=== PATIENT | female | born 1965 | race American Indian/Alaskan Native ===

== ENCOUNTER 2016-08-13 11:25 | Emergency (ER) | payer MEDICARE, MEDICAID ==
[2016-08-13 12:10] VITALS: BP 143/125
[2016-08-13] MEDS ORDERED: Albuterol/Ipratropium 3.0-0.5 MG/3 ML Neb Soln NEB ONE (12:38)
--- NOTE | 2016-08-13 12:47 | EDM.PDOC ---
ED HISTORY OF PRESENT ILLNESS - General Chief Complaint: Respiratory Problem Stated Complaint: COUGHING UP BLOOD AND CHEST HURTS Time Seen by Provider: 08/13/16 12:29 Source: Reports: Patient History Limitations: Reports: No limitations - History of Present Illness INITIAL COMMENTS - FREE TEXT/NARRATIVE: 50 yr old female who reports 2 week hx of cold symptoms. Increased cough and wheezing for the past week. Has hx of asthma and states out of albuterol inhaler until Saturday. Instructions provided to pt were to use 1 puff up to 4 times per day which has not been effective. Pt also notes she had been borrowing a neb machine from someone but they 'took it back' and now she is without. Has not had a fever. Reports throat hurts and feels due to her cough. Mild nasal congestion. Abdomen hurts from coughing, too. Timing/Duration: Reports: Waxing/waning (Recheck of vital signs with normalization of BP and oxygen sat 95 at time of discharge.) Severity: moderate Location, General: Reports: chest Quality: Reports: Same as previous episode Improves with: Reports: Medication Worsens with: Reports: Breathing, Movement Associated Symptoms: Reports: cough, headaches, shortness of breath - Related Data Allergies/ADRs: Allergies Allergy/AdvReac Type Severity Reaction Status Date / Time No Known Allergies Allergy Verified 08/13/16 12:14 Home Meds: Home Meds NK [No Known Home Meds] 08/20/14 [History] Past Medical History HEENT History: Reports: Cataract, Impaired vision Cardiovascular History: Reports: Heart murmur Respiratory History: Reports: Asthma, Bronchitis, recurrent, Other (see below) 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: 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: Psychiatric History: Reports: Anxiety, Panic attack Endocrine/Metabolic History: Reports: Obesity/BMI 30+ Hematologic History: Reports: Anemia - Past Surgical History HEENT Surgical History: Reports: Tonsillectomy GI Surgical History: Reports: Cholecystectomy, EGD Musculoskeletal Surgical History: Reports: Knee replacement, Shoulder surgery Social & Family History - Tobacco Use Smoking Status *Q: Current Some Day Smoker Years of Tobacco use: 35 Packs/Tins Daily: 0.5 Second Hand Smoke Exposure: No - Caffeine Use Caffeine Use: Reports: Coffee - Alcohol Use Days Per Week of Alcohol Use: 0 - Recreational Drug Use Recreational Drug Use: No Drug Use in Last 12 Months: Yes Recreational Drug Type: Reports: Methamphetamine, Oxycodone Recreational Drug Use Frequency: Not Used In Over 1 Month ED ROS GENERAL - Review of Systems Review Of Systems: See Below Constitutional: Reports: fatigue HEENT: Reports: Rhinitis, Throat pain Respiratory: Reports: Shortness of Breath, Wheezing, Cough Cardiovascular: Reports: No symptoms Endocrine: Reports: no symptoms GI/Abdominal: Reports: Abdominal pain (upper abdomen hurts with coughing) : Reports: no symptoms Musculoskeletal: Reports: no symptoms Skin: Reports: no symptoms Neurological: Reports: No Symptoms Psychiatric: Reports: Anxiety (related to breathing concerns) Hematologic/Lymphatic: Reports: no symptoms Immunologic: Reports: environmental allergy, seasonal allergy (states extreme sensitity to fumes, smoke, outdoors and cleaning agents) ED EXAM, GENERAL - Physical Exam Exam: See Below (voice hoarsness noted but pt states has some at baseline) Exam Limited By: No limitations General Appearance: alert, anxious (calms easily when speaking to provider and able to carry on converation.) Eye Exam: bilateral eye: conjunctival injection, PERRL Ears: normal external exam, normal canal, hearing grossly normal, normal TMs Nose: nasal drainage, clear rhinorrhea (diffuse redness of the posterior oropharynx) Throat/Mouth: Other Head: atraumatic, normocephalic Neck: normal inspection, supple, non-tender, full range of motion Respiratory/Chest: wheezing, prolonged expiration Cardiovascular: regular rate, rhythm GI/Abdominal: normal bowel sounds, soft, non tender Back Exam: normal inspection Extremities: normal inspection, normal range of motion, no pedal edema Neurological: alert, oriented, normal cognition, normal gait Psychiatric: anxious (but calms and able to focus on exam) Skin Exam: Warm, Dry, Intact Course - Vital Signs Last Recorded V/S: Last Vital Signs Temp 36.6 C 08/13/16 12:09 Pulse 86 08/13/16 12:09 Resp 20 08/13/16 12:09 BP 143/125 H 08/13/16 12:09 Pulse Ox 90 L 08/13/16 12:09 - Orders/Labs/Meds Orders: Active Orders 24 hr Category Date Time Status RT Aerosol Therapy [RC] ASDIRECTED Care 08/13/16 12:38 Active CULTURE STREP A CONFIRMATION [RM] Stat Lab 08/13/16 12:39 Results STREP SCRN A RAPID W CULT CONF [] Stat Lab 08/13/16 12:39 Results Meds: Medications Discontinued Medications Generic Name Dose Route Start Last Admin Trade Name Latoya PRN Reason Stop Dose Admin Albuterol/Ipratropium 3 ml 08/13/16 12:38 08/13/16 13:07 Duoneb 3.0-0.5 Mg/3 Ml NEB 08/13/16 12:39 3 ml ONETIME ONE Administration - Re-Assessments/Exams Free Text/Narrative Re-Assessment/Exam: 08/13/16 13:56 Pt recieved duoneb treatment and reported anxiety symptoms similiar to what she had experienced at home at times with neb treatment. Wheezing resolved, able to take deep breath and calms with talking to nursing staff and provider. Oxygen saturation 95% upon completion. 08/13/16 13:57 Departure - Departure Time of Disposition: 13:44 Disposition: Home, Self-Care 01 Condition: good Clinical Impression: Acute asthma, Asthma exacerbation, Hoarseness of voice, Medication refill Instructions: Shortness of Breath, Bronchospasm, Adult, [id number] Referrals: PCP,None [Primary Care Provider] - Forms: ED Department Discharge Additional Instructions: 1. Use xopenex inhaler as needed, neb tubing and machine prescription provided. 2. Zithromax for treatment of asthmatic bronchitis. 3. Avoid all smoke, fume and chemical exposures. 4. Followup with [facility] in [place] with one of Dr. Russo colleagues. - Problem List & Annotations (1) Asthma exacerbation SNOMED Code(s): 508645533 Code(s): J45.901 - UNSPECIFIED ASTHMA WITH (ACUTE) EXACERBATION Status: Acute Current Visit: Yes (2) Hoarseness of voice SNOMED Code(s): 51945257 Code(s): R49.0 - DYSPHONIA Status: Acute Current Visit: Yes (3) Medication refill SNOMED Code(s): 728872050, 070972117 Code(s): Z76.0 - ENCOUNTER FOR ISSUE OF REPEAT PRESCRIPTION Status: Acute Current Visit: Yes - Problem List Review Problem List Initiated/Reviewed/Updated: Yes - My Orders Last 24 Hours: My Active Orders 08/13/16 12:38 RT Aerosol Therapy [RC] ASDIRECTED 08/13/16 12:39 CULTURE STREP A CONFIRMATION [RM] Stat STREP SCRN A RAPID W CULT CONF [RM] Stat - Assessment/Plan Last 24 Hours: My Active Orders 08/13/16 12:38 RT Aerosol Therapy [RC] ASDIRECTED 08/13/16 12:39 CULTURE STREP A CONFIRMATION [RM] Stat STREP SCRN A RAPID W CULT CONF [RM] Stat
== END 2016-08-13 14:03 | disposition home or self-care (01) ==
LOC: JP.ED 11:25
DX: J45.901 Unspecified asthma with (acute) exacerbation (principal); R49.0 Dysphonia; F17.210 Nicotine dependence, cigarettes, uncomplicated; E66.9 Obesity, unspecified; Z68.36 Body mass index [BMI] 36.0-36.9, adult; Z76.0 Encounter for issue of repeat prescription; Z90.49 Acquired absence of other specified parts of digestive tract; Z96.659 Presence of unspecified artificial knee joint; Z98.890 Other specified postprocedural states
CPT/HCPCS: 87081; 87430; 99284; J7620

== ENCOUNTER 2016-08-17 22:33 | Emergency (ER) | payer MEDICARE, MEDICAID ==
[2016-08-17 22:49] VITALS: BP 166/76
[2016-08-17] MEDS ORDERED: diphenhydrAMINE 25 MG Cap PO ONE (23:00)
[2016-08-17] MEDS ORDERED: Triamcinolone Acetonide 40 MG/ML 1 ML MDV INJECT ONE (23:01)
--- NOTE | 2016-08-17 23:06 | EDM.PDOC ---
ED HPI GENERAL MEDICAL PROBLEM - General Chief Complaint: Bite:Animal, Insect Stated Complaint: bug bite Time Seen by Provider: 08/17/16 23:01 Source of Information: Reports: Patient, Family History Limitations: Reports: No Limitations - History of Present Illness INITIAL COMMENTS - FREE TEXT/NARRATIVE: pt woke up this am with a insect bite. They do have alot of spiders in the house. This now more raised and is very itchy. Onset: Sudden Duration: Hour(s):, Getting Worse Quality: Reports: Other ( itching. 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: Psychiatric History: Reports: Anxiety, Panic Attack Endocrine/Metabolic History: Reports: Obesity/BMI 30+ Hematologic History: Reports: Anemia - Infectious Disease History Infectious Disease History: Reports: Chicken Pox - Past Surgical History GI Surgical History: Reports: Cholecystectomy, EGD Musculoskeletal Surgical History: Reports: Knee Replacement, Shoulder Surgery Social & Family History - Tobacco Use Smoking Status *Q: Current Some Day Smoker Years of Tobacco use: 35 Packs/Tins Daily: 0.5 Second Hand Smoke Exposure: No - Caffeine Use Caffeine Use: Reports: Coffee - Alcohol Use Days Per Week of Alcohol Use: 0 - Recreational Drug Use Recreational Drug Use: No Drug Use in Last 12 Months: Yes Recreational Drug Type: Reports: Methamphetamine, Oxycodone Recreational Drug Use Frequency: Not Used In Over 1 Month ED ROS GENERAL - Review of Systems Review Of Systems: See Below Constitutional: Reports: No Symptoms HEENT: Reports: No Symptoms Respiratory: Reports: No Symptoms Cardiovascular: Reports: No Symptoms Endocrine: Reports: No Symptoms GI/Abdominal: Reports: No Symptoms : Reports: No Symptoms Musculoskeletal: Reports: No Symptoms Skin: Reports: Other (pt has a rash that is around the bite and she is itchy. ) ED EXAM, ANIMAL BITE - Physical Exam Exam: See Below Text/Narrative:: pt woke up with a bite this am and she now feels it is more swollen and is quite itchy. Exam Limited By: No Limitations General Appearance: Alert, Anxious Ears: Normal TMs Nose: Normal Inspection Throat/Mouth: Normal Inspection Head: Atraumatic Neck: Normal Inspection Respiratory/Chest: No Respiratory Distress Cardiovascular: Regular Rate, Rhythm GI/Abdominal: Soft, Non-Tender Extremities: Other ( rt forearm on the dorsal aspect has a bite which is raised and red. This is quite itchy around it but it is tender in the center. ) Neurological: Alert, Oriented Psychiatric: Anxious Course - Vital Signs Last Recorded V/S: Last Vital Signs Temp 37.2 C 08/17/16 22:47 Pulse 85 08/17/16 22:49 Resp 14 08/17/16 22:47 BP 166/76 H 08/17/16 22:49 Pulse Ox 100 08/17/16 22:47 - Orders/Labs/Meds Meds: Medications Discontinued Medications Generic Name Dose Route Start Last Admin Trade Name Freq PRN Reason Stop Dose Admin Diphenhydramine HCl 50 mg 08/17/16 23:00 Benadryl PO 08/17/16 23:01 ONETIME ONE Triamcinolone Acetonide 60 mg 08/17/16 23:01 Kenalog-40 INJECT 08/17/16 23:02 ASDIRECTED ONE Departure - Departure Time of Disposition: 23:07 Disposition: Home, Self-Care 01 Condition: fair Clinical Impression: Spider bite allergy, current reaction, Cellulitis of arm - Discharge Information Forms: ED Department Discharge Care Plan Goals: soak in tepid water followed by a cool pack, elevate arm, benadryl 50mg tid for itching and swelling, keflex 500mg qid.
== END 2016-08-17 23:30 | disposition home or self-care (01) ==
LOC: JP.ED 22:33
DX: T63.301A Toxic effect of unspecified spider venom, accidental (unintentional), initial encounter (principal); L03.119 Cellulitis of unspecified part of limb; F17.210 Nicotine dependence, cigarettes, uncomplicated; E66.9 Obesity, unspecified; Z68.37 Body mass index [BMI] 37.0-37.9, adult; Z91.048 Other nonmedicinal substance allergy status; Z90.49 Acquired absence of other specified parts of digestive tract; Z96.659 Presence of unspecified artificial knee joint; Z98.890 Other specified postprocedural states; W57.XXXA Bitten or stung by nonvenomous insect and other nonvenomous arthropods, initial encounter
CPT/HCPCS: 96372; 99282; A9270; J3301; 99283

== ENCOUNTER 2017-10-29 18:37 | Emergency (ER) | payer MEDICARE, MEDICAID ==
[2017-10-29 18:55] VITALS: BP 151/86
--- NOTE | 2017-10-29 19:45 | EDM.PDOC ---
<FiliClara - Last Filed: 10/29/17 19:58> ED HPI GENERAL MEDICAL PROBLEM - General Chief Complaint: Upper Extremity Injury/Pain Stated Complaint: LEFT WRIST PAIN Time Seen by Provider: 10/29/17 19:14 Source of Information: Reports: Patient History Limitations: Reports: No Limitations - History of Present Illness Onset: Gradual Onset Date: 10/29/16 Duration: Chronic, Getting Worse Location: Reports: Upper Extremity, Left Quality: Reports: Ache, Throbbing Severity: Moderate Improves with: Reports: Other (using tylenol and alieve) Worsens with: Reports: Movement Context: Reports: Other (degenerative) Associated Symptoms: Reports: No Other Symptoms Left Wrist Pain Score (Numeric/FACES): 4 - Related Data Allergies Allergy/AdvReac Type Severity Reaction Status Date / Time adhesive tape Allergy Itching Verified 10/29/17 19:02 Home Meds: Home Meds NK [No Known Home Meds] 08/20/14 [History] Past Medical History HEENT History: Reports: Cataract, Impaired Vision Cardiovascular History: Reports: Heart Murmur Respiratory History: Reports: Asthma, Bronchitis, Recurrent, Other (See Below) 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: 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 12 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: Psychiatric History: Reports: Anxiety, Panic Attack Endocrine/Metabolic History: Reports: Obesity/BMI 30+ Hematologic History: Reports: Anemia - Infectious Disease History Infectious Disease History: Reports: Chicken Pox - Past Surgical History GI Surgical History: Reports: Cholecystectomy, EGD Musculoskeletal Surgical History: Reports: Knee Replacement, Shoulder Surgery Social & Family History - Tobacco Use Smoking Status *Q: Light Tobacco Smoker Years of Tobacco use: 17 Packs/Tins Daily: 0.5 - Caffeine Use Caffeine Use: Reports: Coffee - Recreational Drug Use Recreational Drug Use: No Review of Systems - Review of Systems Review Of Systems: See Below Constitutional: Reports: No Symptoms Musculoskeletal: Reports: Joint Pain, Muscle Pain, Other (left wrist & thumb ) Skin: Reports: No Symptoms, Bruising, Other (left thumb region) ED EXAM, GENERAL - Physical Exam Exam: See Below Free Text/Narrative:: Pt comes in with left wrist and thumb pain progressing over the last year. Degenerative changes and tendon tear noted on orthopedic surgeon's note. Exam Limited By: No Limitations General Appearance: Alert, WD/WN, Moderate Distress Peripheral Pulses: 2+: Radial (L) Extremities: Joint Swelling, Limited Range of Motion, Other (left wrist noted swelling, limited ROM in left thumb. noted muscle deterioration in lateral aspect of the thumb) Neurological: Alert, Oriented Course - Vital Signs Text/Narrative:: Patient presents to ED looking for Xray of left wrist to see if problem is worsening. Discussion regarding process to see ortho provider. Pt is in agreement that she does not need another xray at this time. Pt states that previous discussion with ortho surgeon led to her needing to quit smokong prior to having surgery. Pt is having difficulty quitting smoking. Pt states down to 5 cigarettes a day from over 1/2 pack previously. Using wellbutrin with out much success according to the patient Pt is referred to [facility] primary care to establish care. Dr. Kolton Neri MD's name provided to patient. Patient is instructed to make appointment. 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 in [place] to get set up with Dr. Kolton Neri primary care Resident/PA IDX Provider #_ * Maikel Valentin MD was personally available for consultation in the ED. I have reviewed the chart and agree with the documentation as recorded by the AMERICAN HISTORY PROFESSOR, including the assessment, treatment plan and disposition. * Maikel Valentin MD personally saw and examined the patient. I have reviewed and agree with the AMERICAN HISTORY PROFESSOR's findings. <Maikel Lofton - Last Filed: 10/29/17 20:06> Departure - Departure Time of Disposition: 20:05 - Assessment/Plan Plan: Assessment Acuity = acute Site and laterality = chronic left wrist pain Etiology = scapholunate advance collapse Manifestations = pain Location of injury = Home Lab values = none Plan Referral set for primary care provider [facility] This note was dictated using [employer] voice recognition software please call with any questions on syntax or grammar.
== END 2017-10-29 20:15 | disposition home or self-care (01) ==
LOC: JP.ED 18:37
DX: M25.832 Other specified joint disorders, left wrist (principal); F17.210 Nicotine dependence, cigarettes, uncomplicated; Z91.09 Other allergy status, other than to drugs and biological substances
CPT/HCPCS: 99283

== ENCOUNTER 2019-05-22 12:09 | Emergency (ER) | payer MEDICARE, MEDICAID ==
[2019-05-22] MEDS ORDERED: Sodium Chloride 0.9% 10 ML Syringe FLUSH PRN (12:24)
--- NOTE | 2019-05-22 12:29 | EDM.PDOC ---
ED HPI GENERAL MEDICAL PROBLEM - General Chief Complaint: Neurological Problem Stated Complaint: MEDICAL VIA [facility] Time Seen by Provider: 05/22/19 12:15 Source of Information: Reports: Patient, EMS, Family, Old Records History Limitations: Reports: No Limitations - History of Present Illness INITIAL COMMENTS - FREE TEXT/NARRATIVE: 53 yo female 1/2 ppd smoker recently had surgery on her L knee. Today about 11 am the daughter reports that her mother started slurring her speech. This was preceded by some diplopia. There may be a pHx of TIA with patient reporting being seen in [place] some years ago for numbness on one side of her body that lasted about 2 hrs. Denies any pain currently. Has had oxycodone and Tramadol this morning. Denies ETOH. 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) - Related Data Allergies Allergy/AdvReac Type Severity Reaction Status Date / Time adhesive tape Allergy Itching Verified 05/22/19 12:17 hydromorphone [From Dilaudid] Allergy Itching Verified 05/22/19 12:17 oxycodone Allergy Nausea and Verified 05/22/19 12:17 Vomiting Home Meds: Home Meds Albuterol [Proventil Neb Soln] 1 ampule INH Q4H PRN 05/22/19 [History] Albuterol [Ventolin HFA] 2 puff INH Q4H PRN 05/22/19 [History] Diclofenac Sodium [Voltaren 1% Gel] 1 applic TOP QID PRN 05/22/19 [History] Furosemide 20 mg PO DAILY 05/22/19 [History] Gabapentin [Neurontin] 600 mg PO BEDTIME 05/22/19 [History] buPROPion [Wellbutrin SR] 150 mg PO DAILY 05/22/19 [History] hydrOXYzine pamoate [Vistaril] 50 mg PO Q6H PRN 05/22/19 [History] oxyCODONE 5 mg PO Q6H PRN 05/22/19 [History] traMADol HCl [Tramadol HCl] 50 mg PO TID PRN 05/22/19 [History] Past Medical History HEENT History: Reports: Cataract, Impaired Vision Cardiovascular History: Reports: Heart Murmur Respiratory History: Reports: Asthma, Bronchitis, Recurrent, Other (See Below) 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: Psychiatric History: Reports: Anxiety, Panic Attack Endocrine/Metabolic History: Reports: Obesity/BMI 30+ Hematologic History: Reports: Anemia - Infectious Disease History Infectious Disease History: Reports: Chicken Pox - Past Surgical History GI Surgical History: Reports: Cholecystectomy, EGD Musculoskeletal Surgical History: Reports: Knee Replacement, Shoulder Surgery Social & Family History - Caffeine Use Caffeine Use: Reports: Coffee ED ROS GENERAL - Review of Systems Review Of Systems: See Below Constitutional: Reports: No Symptoms HEENT: Reports: No Symptoms Respiratory: Reports: No Symptoms Cardiovascular: Reports: No Symptoms GI/Abdominal: Reports: No Symptoms : Reports: No Symptoms Musculoskeletal: Reports: No Symptoms Skin: Reports: No Symptoms Neurological: Reports: Change in Speech, Other (some double vision). Denies: Dizziness, Headache, Paresthesia, Syncope, Weakness, Gait Disturbance Psychiatric: Reports: No Symptoms ED EXAM, NEURO - Physical Exam Exam: See Below Exam Limited By: No Limitations General Appearance: Alert, WD/WN, No Apparent Distress Eye Exam: Bilateral Eye: EOMI, Normal Inspection, PERRL Ears: Normal External Exam, Normal Canal, Hearing Grossly Normal, Normal TMs Nose: Normal Inspection, No Blood Throat/Mouth: Normal Inspection, Normal Lips, Normal Oropharynx, Normal Voice, No Airway Compromise Head Exam: Atraumatic, Normocephalic Neck: Normal Inspection Respiratory/Chest: No Respiratory Distress, Lungs Clear, Normal Breath Sounds, No Accessory Muscle Use Cardiovascular: Regular Rate, Rhythm, No Edema GI/Abdominal: Normal Bowel Sounds, Soft, Non-Tender, No Distention Neurological: Alert, Normal Mood/Affect, CN II-XII Intact, Oriented x 3, Other ( slurring of speech, no other deficits noted.) Back Exam: Normal Inspection Extremities: Other (recent surgical wound with dressing L anterior knee. ) Psychiatric: Normal Affect, Normal Mood Skin Exam: Warm, Dry, Normal Color, No Rash, Wound/Incision (surgical wound L anterior knee. ) Course - Vital Signs Text/Narrative:: discussed case with stroke neurologist @ [facility] @ 8187h. Stroke Scale score is 2 1400h, does not recall the ambulance ride here or having her head CT scan. Short term memory affected. Last Recorded V/S: Last Vital Signs Temp 37.3 C 05/22/19 12:32 Pulse 92 05/22/19 13:34 Resp 17 05/22/19 14:25 BP 142/77 H 05/22/19 14:25 Pulse Ox 92 L 05/22/19 14:12 - Orders/Labs/Meds Labs: Laboratory Tests 05/22/19 05/22/19 05/22/19 Range/Units 12:40 12:40 12:40 WBC 9.0 (4.5-11.0) K/uL RBC 4.34 (3.30-5.50) M/uL Hgb 11.9 L (12.0-15.0) g/dL Hct 38.2 (36.0-48.0) % MCV 88 (80-98) fL MCH 27 (27-31) pg MCHC 31 L (32-36) % Plt Count 297 (150-400) K/uL Sodium 139 L (140-148) mmol/L Potassium 4.7 (3.6-5.2) mmol/L Chloride 103 (100-108) mmol/L Carbon Dioxide 28 (21-32) mmol/L Anion Gap 12.7 (5.0-14.0) mmol/L BUN 10 D (7-18) mg/dL Creatinine 0.7 (0.6-1.0) mg/dL Est Cr Clr Drug Dosing 78.41 mL/min Estimated GFR (MDRD) > 60 (>60) Glucose 122 H (74-106) mg/dL Calcium 8.6 (8.5-10.1) mg/dL Troponin I < 0.017 (0.000-0.056) ng/mL Ethyl Alcohol < 3 mg/dL Meds: Medications Discontinued Medications Generic Name Dose Route Start Last Admin Trade Name Freq PRN Reason Stop Dose Admin Alteplase, Recombinant 90 mg 05/22/19 13:54 05/22/19 14:05 Activase IV 05/22/19 13:55 90 mg .INFUSION ONE Administration Hydromorphone HCl 0.5 mg 05/22/19 14:44 05/22/19 14:49 Dilaudid IVPUSH 05/22/19 14:45 0.5 mg ONETIME ONE Administration Ondansetron HCl 4 mg 05/22/19 15:04 05/22/19 15:10 Zofran IVPUSH 05/22/19 15:05 4 mg ONETIME ONE Administration Ondansetron HCl Confirm 05/22/19 15:06 05/22/19 15:10 Zofran Administered 05/22/19 15:07 Not Given Dose 4 mg .ROUTE .STK-MED ONE Sodium Chloride 10 ml 05/22/19 12:24 05/22/19 13:42 Saline Flush FLUSH 10 ml ASDIRECTED PRN Administration Keep Vein Open - Radiology Interpretation Free Text/Narrative:: Head CT without contrast-neg CT Results Date: 05/22/19 Departure - Departure Time of Disposition: 14:30 Disposition: DC/Tfer to Acute Hospital 02 Condition: Serious Clinical Impression: Tobacco abuse CVA (cerebral vascular accident) Qualifiers: CVA mechanism: unspecified Qualified Code(s): I63.9 - Cerebral infarction, unspecified - Discharge Information *PRESCRIPTION DRUG MONITORING PROGRAM REVIEWED*: No *COPY OF PRESCRIPTION DRUG MONITORING REPORT IN PATIENT JAKY: No Referrals: PCP,None [Primary Care Provider] - Forms: ED Department Discharge Sepsis Event Note - Focused Exam Date Exam was Performed: 05/25/19 Time Exam was Performed: 18:00
--- NOTE | 2019-05-22 13:25 | CT ---
Head wo Cont CLINICAL HISTORY: Acute confusion COMPARISON: None TECHNIQUE: Transverse scans were obtained from the base of the skull through the vertex without IV contrast on a multislice, multidetector CT scanner. Auto dosage reduction and iterative reconstruction techniques employed. FINDINGS: No focal abnormal parenchymal densities are identified. There is no mass effect, hemorrhage, or extraaxial collection. The basal cisterns and sulci over the convexities are normal. The ventricles are normal for age. IMPRESSION: No acute intracranial abnormality
[2019-05-22 13:51] VITALS: PULSE 92
[2019-05-22 14:26] VITALS: BP 142/77
[2019-05-22] MEDS ORDERED: HYDROmorphone 0.5 MG/0.5 ML Syringe IVPUSH ONE (14:44)
[2019-05-22] MEDS ORDERED: Ondansetron 4 MG/2 ML SDV IVPUSH ONE (15:04)
[2019-05-22] MEDS ORDERED: Ondansetron 4 MG/2 ML SDV ONE (15:06)
== END 2019-05-22 15:17 ==
LOC: JP.ED 12:09
DX: I63.9 Cerebral infarction, unspecified (principal); J45.909 Unspecified asthma, uncomplicated; E66.9 Obesity, unspecified; F17.210 Nicotine dependence, cigarettes, uncomplicated; Z91.048 Other nonmedicinal substance allergy status; Z88.5 Allergy status to narcotic agent; Z68.37 Body mass index [BMI] 37.0-37.9, adult
CPT/HCPCS: 36415; 37195; 70450; 80048; 80307; 84484; 85027; 96374; 96375; 99285; J1170; J2405; J2997

== ENCOUNTER 2019-06-06 17:57 | Emergency (ER) | payer MEDICARE, MEDICAID ==
[2019-06-06 18:22] VITALS: BP 179/67; PULSE 81
--- NOTE | 2019-06-06 19:37 | EDM.PDOC ---
ED HPI GENERAL MEDICAL PROBLEM - General Chief Complaint: Headache Stated Complaint: HEADACHE, SOB, WEAK FEELING Time Seen by Provider: 06/06/19 19:27 Source of Information: Reports: Patient History Limitations: Reports: No Limitations - History of Present Illness INITIAL COMMENTS - FREE TEXT/NARRATIVE: Patient presents describing 3 days of frontal headache as well as feeling anxious and short of breath. She underwent left knee arthroplasty on 18 May and then on 22 May was seen in this department with concerns for stroke symptom onset. Based on her evaluation at that time, thrombolytics were started in this department and she was transferred to [facility] in [place]. The patient has very little memory of her visit here and much of the events of the 48 hours she was in the hospital. The friend that accompanies her can provide some additional history. She states that she was told that she had some kind of stroke or possibly TIA. Apart from the thrombolytic she received, she had no other specific directed therapy while in the hospital. She had some kind of diagnostic testing done while she was there but can't recall the specifics. She was started on a couple new medications but does not recall the names although aspirin was one of the recommended meds. After starting to take at and using it for several days, she began to get some bleeding from her knee incision. Her orthopedist recommended that she stop the aspirin, which she did almost 10 days ago and has not resumed. The headache she describes tonight is mild to moderate in intensity and steady. She has a history of migraine headaches as well as bipolar disorder and numerous other concurrent diagnoses. She is not dizzy. No visual changes. She is not photophobic. No areas of weakness or change in sensation. She has been taking Tylenol, ibuprofen, tramadol in relation to her headache pain but it has not had a consistent effect in reducing it. We do not have any hospital records at this time from [facility]. Onset: Gradual Duration: Day(s): (3) Location: Reports: Head Quality: Reports: Ache, Dull Severity: Mild Improves with: Reports: None Worsens with: Reports: None Headache Pain Score (Numeric/FACES): 3 - Related Data Allergies Allergy/AdvReac Type Severity Reaction Status Date / Time adhesive tape Allergy Itching Verified 06/06/19 18:22 clonazepam [From Klonopin] Allergy Anaphylactic Verified 02/29/20 18:22 Shock hydromorphone [From Dilaudid] Allergy Itching Verified 06/06/19 18:22 oxycodone Allergy Nausea and Verified 06/06/19 18:22 Vomiting Home Meds: Home Meds Albuterol [Proventil Neb Soln] 1 ampule INH Q4H PRN 05/22/19 [History] Albuterol [Ventolin HFA] 2 puff INH Q4H PRN 05/22/19 [History] buPROPion [Wellbutrin SR] 150 mg PO DAILY 05/22/19 [History] oxyCODONE 5 mg PO Q6H PRN 05/22/19 [History] traMADol HCl [Tramadol HCl] 50 mg PO TID PRN 05/22/19 [History] atorvaSTATin [Lipitor] 40 mg PO BEDTIME 06/06/19 [History] Past Medical History HEENT History: Reports: Cataract, Impaired Vision Cardiovascular History: Reports: Heart Murmur Respiratory History: Reports: Asthma, Bronchitis, Recurrent, Other (See Below) 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: pneumonia 12 years ago CEO 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: 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: Neurological History: Reports: TIA Psychiatric History: Reports: Anxiety, Panic Attack Endocrine/Metabolic History: Reports: Obesity/BMI 30+ Hematologic History: Reports: Anemia - Infectious Disease History Infectious Disease History: Reports: Chicken Pox - Past Surgical History GI Surgical History: Reports: Cholecystectomy, EGD Musculoskeletal Surgical History: Reports: Knee Replacement, Shoulder Surgery Social & Family History - Tobacco Use Smoking Status *Q: Current Every Day Smoker Years of Tobacco use: 39 Packs/Tins Daily: 0.5 - Caffeine Use Caffeine Use: Reports: Coffee, Soda - Recreational Drug Use Recreational Drug Use: No ED ROS GENERAL - Review of Systems Review Of Systems: See Below Constitutional: Reports: No Symptoms HEENT: Denies: Ear Pain, Eye Pain, Vertigo, Vision Change Respiratory: Reports: No Symptoms Cardiovascular: Reports: No Symptoms Neurological: Reports: Headache. Denies: Dizziness, Difficulty Walking, Change in Speech Psychiatric: Reports: Anxiety - Physical Exam Exam: See Below Text/Narrative:: This is a very talkative individual who freely answers questions. Exam Limited By: No Limitations General Appearance: Alert, Anxious Head Exam: Atraumatic Neck: Normal Inspection Cardiovascular: Regular Rate, Rhythm Neuro Exam (Abbreviated): Alert, Oriented, Normal Gait. No: Abnormal Gait Course - Vital Signs Last Recorded V/S: Last Vital Signs Temp 36.6 C 06/06/19 18:20 Pulse 81 06/06/19 18:20 Resp 20 06/06/19 18:20 BP 179/67 H 06/06/19 18:20 Pulse Ox 98 06/06/19 18:20 - Re-Assessments/Exams Free Text/Narrative Re-Assessment/Exam: 06/07/19 00:27 Discharge documents were eventually received from her [facility] admission. Discharge diagnoses were #1 clinical suspicion of ischemic stroke based on presence of diplopia and dysarthria. She did receive TPA prior to arrival at [facility]. #2 and cutis cephalopathy. #3 right internal carotid artery stenosis. #4 bipolar disorder. #5 surgical site bleeding at left knee. Her stroke scale on arrival at [facility] was 2?3. Her head CT at this facility prior to transfer was negative. Blood pressure was elevated. She underwent CT angiograms of the head and neck. She apparently is not MRI compatible due to components of her shoulder replacement. There was some mild vessel stenosis. She had an episode of agitation and combativeness when first seen in the [facility] emergency Department prior to admission. The patient was discharged on aspirin 325 mg, atorvastatin 80 mg. She was to follow-up with primary care in 1 week but follow-up timeframe for [facility] stroke clinic was not described in the documents available to me. It took some time to get an review these documents. When I returned to the room, she was no longer sitting on the bed but in a side chair and felt improved from her initial arrival. She feels like she is ready to go home. I reviewed her documents received. Although she stopped her aspirin based on incision bleeding, actually well in the hospital, I recommend that she resume at based on neurology consultation comments. She should call her primary care and [facility] next week to verify when she is scheduled to follow up again. She was discharged in stable condition and can return at any time if symptoms are worsening. Departure - Departure Time of Disposition: 20:43 Disposition: Home, Self-Care 01 Condition: Good Clinical Impression: Anxiety Headache Qualifiers: Headache type: unspecified Headache chronicity pattern: unspecified pattern Intractability: not intractable Qualified Code(s): R51 - Headache Stroke (cerebrum) Qualifiers: CVA mechanism: unspecified Qualified Code(s): I63.9 - Cerebral infarction, unspecified - Discharge Information *PRESCRIPTION DRUG MONITORING PROGRAM REVIEWED*: Not Applicable *COPY OF PRESCRIPTION DRUG MONITORING REPORT IN PATIENT JAKY: Not Applicable Instructions: Hospital Discharge After a Stroke, Migraine Headache, Easy-to- Read, Stroke Prevention, [id number], Warning Signs of a Stroke Referrals: Soheila Saleem DO [Primary Care Provider] - Forms: ED Department Discharge Additional Instructions: I recommend restarting your aspirin 325 mg tablet. Based on the notes from [facility], it is being used to reduce your risk of future stroke. Continue the nighttime cholesterol medicine. Contact [facility] on Saturday to verify when you are supposed to follow up in [place] and with your local primary care doctor. Return to ER if feeling worse in anyway. Sepsis Event Note - Evaluation Sepsis Screening Result: No Definite Risk - Focused Exam Vital Signs: Vital Signs Temp Pulse Resp BP Pulse Ox 06/06/19 18:20 36.6 C 81 20 179/67 H 98 Date Exam was Performed: 06/07/19 Time Exam was Performed: 00:18
== END 2019-06-06 20:53 | disposition home or self-care (01) ==
LOC: JP.ED 17:57
DX: I63.9 Cerebral infarction, unspecified (principal); F41.9 Anxiety disorder, unspecified; J45.909 Unspecified asthma, uncomplicated; F17.210 Nicotine dependence, cigarettes, uncomplicated; Z91.048 Other nonmedicinal substance allergy status; Z88.5 Allergy status to narcotic agent; Z79.899 Other long term (current) drug therapy; Z86.73 Personal history of transient ischemic attack (TIA), and cerebral infarction without residual deficits; E66.9 Obesity, unspecified; Z68.32 Body mass index [BMI] 32.0-32.9, adult
CPT/HCPCS: 99283

== ENCOUNTER 2019-06-10 11:54 | Emergency (ER) | payer MEDICARE, MEDICAID ==
--- NOTE | 2019-06-10 12:16 | EDM.PDOC ---
ED HPI GENERAL MEDICAL PROBLEM - General Chief Complaint: Cardiovascular Problem Stated Complaint: HIGH BP Time Seen by Provider: 06/10/19 12:30 Source of Information: Reports: Patient, Old Records, Significant Other History Limitations: Reports: No Limitations - History of Present Illness INITIAL COMMENTS - FREE TEXT/NARRATIVE: She presents with 1 week of increasing headache which she describes as being frontal and behind her eyes. Concurrent symptoms include 10 pound weight gain, swelling of her abdomen, and increasing shortness of breath. I have informed the patient initially that her measured blood pressure here in the emergency department does not constitute a medical emergency but that we should be getting her started on chronic antihypertensive medication. She has not taken Tylenol because she is under the impression that it would adversely affect her kidneys. I have informed her that acetaminophen is metabolized in the liver and should be safe for her kidney function. We will initially treat her headache with oral acetaminophen and start her on oral hydrochlorothiazide for her blood pressure. Because of the symptoms of weight gain and increasing shortness of breath, will perform twelve-lead EKG, chest x-ray and laboratory studies. Onset Date: 06/03/19 (Chronic) Duration: Chronic, Getting Worse, Other (Patient states the headache is stronger today.) Location: Reports: Head, Other (Tunnel and behind her eyes) Quality: Reports: Ache Severity: Severe Improves with: Reports: None Worsens with: Reports: Other (Sitting up) Associated Symptoms: Reports: Shortness of Breath (States that she cannot go for very long walks because she gets short of breath), Weakness. 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 (Took 2 aspirin this morning no effect) Headache Pain Score (Numeric/FACES): 4 - Related Data Allergies Allergy/AdvReac Type Severity Reaction Status Date / Time adhesive tape Allergy Itching Verified 06/10/19 12:30 clonazepam [From Klonopin] Allergy Anaphylactic Verified 06/10/19 12:30 Shock hydromorphone [From Dilaudid] Allergy Itching Verified 06/10/19 12:30 Home Meds: Home Meds Albuterol [Ventolin HFA] 2 puff INH Q4H PRN 05/22/19 [History] oxyCODONE 5 mg PO Q6H PRN 05/22/19 [History] traMADol HCl [Tramadol HCl] 50 mg PO TID PRN 05/22/19 [History] atorvaSTATin [Lipitor] 40 mg PO BEDTIME 06/06/19 [History] Aspirin 325 mg PO DAILY 06/10/19 [History] Past Medical History HEENT History: Reports: Cataract, Impaired Vision, Other (See Below) (Blurred vision. Cataracts.) Cardiovascular History: Reports: Heart Murmur, Hypertension (At the last visit to this facility on 06/06/2019, blood pressure was measured at 179/67.) Respiratory History: Reports: Asthma, Bronchitis, Recurrent, Other (See Below) ( Tobacco use. 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 On 22 May she was admitted to [facility] with a clinical suspicion of ischemic stroke which she had been treated with TPA. She was discharged on aspirin and statin medication.) Neurological History: Reports: Headaches, Chronic (Migraines), TIA Psychiatric History: Reports: Anxiety, Bipolar, Panic Attack Endocrine/Metabolic History: Reports: Obesity/BMI 30+ Hematologic History: Reports: Anemia - Infectious Disease History Infectious Disease History: Reports: Chicken Pox - Past Surgical History GI Surgical History: Reports: Cholecystectomy, EGD Musculoskeletal Surgical History: Reports: Knee Replacement, Shoulder Surgery Social & Family History - Caffeine Use Caffeine Use: Reports: Coffee, Soda - Recreational Drug Use Recreational Drug Use: No - Living Situation & Occupation Living situation: Reports: with Significant Other, Other (Home health nurse does come and visit her periodically.) ED ROS GENERAL - Review of Systems Review Of Systems: See Below Constitutional: Reports: Weakness, Fatigue, Weight Gain, Other (The patient states she has had a 10 pound weight gain in the last week with nominal distention). Denies: Fever HEENT: Reports: Vision Change (blurry), Other. Denies: Nose Pain, Rhinitis, Sinus Problem, Throat Pain Respiratory: Reports: Shortness of Breath Cardiovascular: Reports: Blood Pressure Problem, Dyspnea on Exertion, Edema. Denies: Chest Pain Endocrine: Reports: Fatigue GI/Abdominal: Reports: Distension. Denies: Abdominal Pain Musculoskeletal: Reports: No Symptoms, Other (Previously existing knee pain is markedly improved since she had surgery) Skin: Reports: No Symptoms Neurological: Reports: Headache. Denies: Confusion, Dizziness, Pre-Existing Deficit, Trouble Speaking, Change in Speech Psychiatric: Reports: No Symptoms ED EXAM, GENERAL - Physical Exam Exam: See Below Exam Limited By: No Limitations General Appearance: Alert, Obese Eye Exam: Bilateral Eye: EOMI, PERRL Ears: Normal External Exam Nose: Normal Inspection. No: Nasal Drainage Head: Atraumatic, Normocephalic. No: Facial Swelling Neck: Normal Inspection, Full Range of Motion. No: Carotid Bruit Respiratory/Chest: No Respiratory Distress, Lungs Clear, Decreased Breath Sounds. No: Wheezing Cardiovascular: Regular Rate, Rhythm, No JVD, Systolic Murmur, Other (lower extremities with 1+ pretibial edema noted) Back Exam: Normal Inspection Extremities: Normal Range of Motion. No: Joint Swelling Neurological: Alert, Oriented, Normal Cognition EKG INTERPRETATION EKG Date: 06/10/19 Time: 13:05 Rhythm: NSR Hunt: Normal P-Wave: Present QRS: Normal ST-T: Normal Course - Vital Signs Text/Narrative:: CBC shows no anemia. Troponin levels normal. Beta natruretic protein shows no evidence of congestive heart failure. Kidney function is perfect. Chest x-ray shows normal cardiac size and clear lung wade. The patient on chronic antihypertensive medication with hydrochlorothiazide, especially given her recent weight gain. Sized to the patient the importance of primary care follow- up since I am starting her on a new chronic medication. I have told her that it would be absolutely fine for her to take up to 1000 mg of acetaminophen 4 times a day for headache, but no more than that. Last Recorded V/S: Last Vital Signs Temp 35.5 C L 06/10/19 12:24 Pulse 79 06/10/19 12:24 Resp 18 06/10/19 12:24 BP 156/57 H 06/10/19 12:24 Pulse Ox 96 06/10/19 12:24 - Orders/Labs/Meds Orders: Active Orders 24 hr Category Date Time Status EKG Documentation Completion [RC] ASDIRECTED Care 06/10/19 13:02 Active EKG 12 Lead [EK] Routine Ther 06/10/19 13:02 Ordered Labs: Laboratory Tests 06/10/19 06/10/19 06/10/19 Range/Units 13:11 13:11 13:37 WBC 11.5 H (4.5-11.0) K/uL RBC 4.43 (3.30-5.50) M/uL Hgb 12.1 (12.0-15.0) g/dL Hct 40.3 (36.0-48.0) % MCV 91 (80-98) fL MCH 27 (27-31) pg MCHC 30 L (32-36) % Plt Count 407 H (150-400) K/uL Sodium 143 (140-148) mmol/L Potassium 4.9 (3.6-5.2) mmol/L Chloride 108 (100-108) mmol/L Carbon Dioxide 27 (21-32) mmol/L Anion Gap 8.1 (5.0-14.0) mmol/L BUN 19 H D (7-18) mg/dL Creatinine 0.8 (0.6-1.0) mg/dL Est Cr Clr Drug Dosing 68.61 mL/min Estimated GFR (MDRD) > 60 (>60) Glucose 90 (74-106) mg/dL Calcium 8.5 (8.5-10.1) mg/dL Total Bilirubin 0.4 (0.2-1.0) mg/dL AST 23 (15-37) U/L ALT 44 (12-78) U/L Alkaline Phosphatase 120 H (46-116) U/L Troponin I < 0.017 (0.000-0.056) ng/mL NT-Pro-B Natriuret Pep 97 (5-125) pg/mL Total Protein 7.2 (6.4-8.2) g/dL Albumin 3.6 (3.4-5.0) g/dL Globulin 3.6 H (2.3-3.5) g/dL Albumin/Globulin Ratio 1.0 L (1.2-2.2) Urine Color Yellow (YELLOW) Urine Appearance Slightly cloudy A (CLEAR) Urine pH 5.5 (5.0-8.0) Ur Specific [place] >= 1.030 (1.008-1.030) Urine Protein Negative (NEGATIVE) mg/dL Urine Glucose (UA) Negative (NEGATIVE) mg/dL Urine Ketones Negative (NEGATIVE) mg/dL Urine Occult Blood Moderate H (NEGATIVE) Urine Nitrite Negative (NEGATIVE) Urine Bilirubin Negative (NEGATIVE) Urine Urobilinogen 0.2 (0.2-1.0) EU/dL Ur Leukocyte Esterase Negative (NEGATIVE) Urine RBC 5-10 H (0-5) Urine WBC 0-5 (0-5) Ur Epithelial Cells Moderate Amorphous Sediment Moderate Urine Bacteria Moderate Urine Mucus Moderate Meds: Medications Discontinued Medications Generic Name Dose Route Start Last Admin Trade Name Latoya PRN Reason Stop Dose Admin Acetaminophen 1,000 mg 06/10/19 13:04 06/10/19 13:13 Tylenol Extra Strength PO 06/10/19 13:05 1,000 mg ONETIME ONE Administration Hydrochlorothiazide 25 mg 06/10/19 13:04 06/10/19 13:14 Hydrochlorothiazide PO 06/10/19 13:05 25 mg ONETIME ONE Administration Departure - Departure Time of Disposition: 13:57 Disposition: Home, Self-Care 01 Condition: Good Clinical Impression: Hypertension, Obesity, Tobacco abuse Headache Qualifiers: Headache type: unspecified Headache chronicity pattern: unspecified pattern Intractability: not intractable Qualified Code(s): R51 - Headache Instructions: Preventing Hypertension, Preventing Health Risks of Being Overweight, Exercising to Lose Weight Referrals: Soheila Saleem DO [Primary Care Provider] - Forms: ED Department Discharge Additional Instructions: No added salt diet. Remove saltshaker from your table. Try to go outside and walk around 2 blocks twice a day. Take hydrochlorothiazide in the morning so you are not getting up in the middle of the night to urinate. Continue all your previous medications especially the aspirin and statin. It would be fine for you to take Tylenol for a headache. Do not take more than 4000 mg/day Sepsis Event Note - Focused Exam Vital Signs: Vital Signs Temp Pulse Resp BP Pulse Ox 06/10/19 12:24 35.5 C L 79 18 156/57 H 96 Date Exam was Performed: 06/10/19 Time Exam was Performed: 13:57 - My Orders Last 24 Hours: My Active Orders 06/10/19 13:02 EKG Documentation Completion [RC] ASDIRECTED EKG 12 Lead [EK] Routine - Assessment/Plan Last 24 Hours: My Active Orders 06/10/19 13:02 EKG Documentation Completion [RC] ASDIRECTED EKG 12 Lead [EK] Routine
[2019-06-10 12:30] VITALS: BP 156/57; PULSE 79
[2019-06-10] MEDS: Acetaminophen 500 MG Tab PO ONE (13:13)
[2019-06-10] MEDS: Hydrochlorothiazide 25 MG Tab PO ONE (13:14)
--- NOTE | 2019-06-10 13:56 | CRLCR ---
INDICATION: Shortness of breath TECHNIQUE: Chest 2 views. COMPARISON: None FINDINGS: Cardiovascular and mediastinum: Heart size and vasculature are normal in caliber and appearance. Mediastinum is within normal limits. Lungs and pleural spaces: Lungs are clear. No sign of infiltrate or mass. No sign of pleural effusion. No pneumothorax. Bones and soft tissues: Right shoulder arthroplasty. IMPRESSION: Unremarkable chest. Dictated by Tyree Veronica MD @ 06/10/2019 1:54:43 PM Dictated by: Tyree Veronica MD @ 06/10/2019 13:54:49 (Electronically Signed)
== END 2019-06-10 14:12 | disposition home or self-care (01) ==
LOC: JP.ED 11:54
DX: I10 Essential (primary) hypertension (principal); R51 Headache; E11.9 Type 2 diabetes mellitus without complications; Z88.8 Allergy status to other drugs, medicaments and biological substances; Z91.09 Other allergy status, other than to drugs and biological substances; Z86.73 Personal history of transient ischemic attack (TIA), and cerebral infarction without residual deficits; Z90.49 Acquired absence of other specified parts of digestive tract; Z79.82 Long term (current) use of aspirin; Z79.899 Other long term (current) drug therapy
CPT/HCPCS: 36415; 71046; 80053; 81001; 83880; 84484; 85027; 93005; 99283; 99285; A9270

== ENCOUNTER 2019-06-17 04:36 | Emergency (ER) | payer MEDICARE, MEDICAID ==
[2019-06-17 04:51] VITALS: BP 130/76; PULSE 74
[2019-06-17] MEDS ORDERED: hydrOXYzine HCL 100 MG/2 ML SDV IM ONE (05:26)
[2019-06-17] MEDS ORDERED: diphenhydrAMINE 50 MG/ML SDV IVPUSH ONE (05:32)
[2019-06-17] MEDS ORDERED: Haloperidol Lactate 5 MG/ML SDV IVPUSH ONE (05:32)
--- NOTE | 2019-06-17 05:47 | EDM.PDOC ---
ED HPI GENERAL MEDICAL PROBLEM - General Chief Complaint: Neurological Problem Stated Complaint: MEDICAL [facility]IA [facility] Time Seen by Provider: 06/17/19 05:08 Source of Information: Reports: Patient, Family, RN Notes Reviewed History Limitations: Reports: No Limitations - History of Present Illness INITIAL COMMENTS - FREE TEXT/NARRATIVE: 53-year-old female presents emergency department today with multiple complaints her speech is pressured difficult to pinpoint the exact problem. Complaints include the following headache for 10 days that is not relieved by Tylenol, weakness, nausea, tremulous predominantly on the left hand, elevated blood pressure, elevated blood sugar generalized anxiety. Does have a history of recent TIA back in May of this year has started on aspirin was on hydrocodone for many years for chronic pain now takes gabapentin. 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 Top Head Pain Score (Numeric/FACES): 4 - Related Data Allergies Allergy/AdvReac Type Severity Reaction Status Date / Time adhesive tape Allergy Itching Verified 06/17/19 05:12 clonazepam [From Klonopin] Allergy Anaphylactic Verified 06/17/19 05:55 Shock hydromorphone [From Dilaudid] Allergy Itching Verified 06/17/19 05:12 Home Meds: Home Meds Albuterol [Ventolin HFA] 2 puff INH Q4H PRN 05/22/19 [History] atorvaSTATin [Lipitor] 80 mg PO BEDTIME 06/06/19 [History] Aspirin 325 mg PO DAILY 06/10/19 [History] Diclofenac Potassium [Cataflam] 50 mg PO DAILY 06/17/19 [History] Gabapentin [Neurontin] 400 mg PO TID 06/17/19 [History] hydroCHLOROthiazide [Hydrochlorothiazide] 12.5 mg INH DAILY 06/17/19 [History] Past Medical History HEENT History: Reports: Cataract, Impaired Vision, Other (See Below) Cardiovascular History: Reports: Heart Murmur, Hypertension, Other (See Below) ( Carotid artery stenosis) Respiratory History: Reports: Asthma, Bronchitis, Recurrent, Other (See Below) 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: pneumonia 12 years ago 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: Neurological History: Reports: Headaches, Chronic, TIA Psychiatric History: Reports: Anxiety, Bipolar, Panic Attack Endocrine/Metabolic History: Reports: Obesity/BMI 30+ Hematologic History: Reports: Anemia - Infectious Disease History Infectious Disease History: Reports: Chicken Pox - Past Surgical History GI Surgical History: Reports: Cholecystectomy, EGD Musculoskeletal Surgical History: Reports: Knee Replacement, Shoulder Surgery Social & Family History - Tobacco Use Smoking Status *Q: Current Every Day Smoker Years of Tobacco use: 35 Packs/Tins Daily: 5 Second Hand Smoke Exposure: Yes - Caffeine Use Caffeine Use: Reports: Coffee, Soda Other Caffeine Use: 3 beverages per day - Recreational Drug Use Recreational Drug Use: No - Living Situation & Occupation Living situation: Reports: with Significant Other, Other (Home health nurse does come and visit her periodically.) ED ROS GENERAL - Review of Systems Review Of Systems: See Below Constitutional: Reports: Weakness. Denies: Fever, Chills HEENT: Reports: No Symptoms Respiratory: Reports: No Symptoms Cardiovascular: Reports: No Symptoms GI/Abdominal: Reports: Nausea : Reports: No Symptoms Musculoskeletal: Reports: No Symptoms Skin: Reports: No Symptoms Neurological: Reports: Headache Psychiatric: Reports: Anxiety - Physical Exam Exam: See Below Exam Limited By: No Limitations General Appearance: Alert, Mild Distress Eye Exam: Bilateral Eye: EOMI, Normal Inspection, PERRL Throat/Mouth: Normal Inspection, No Airway Compromise Head Exam: Atraumatic, Normocephalic Neck: Normal Inspection, Supple, Non-Tender, Full Range of Motion Respiratory/Chest: No Respiratory Distress, Lungs Clear, Normal Breath Sounds, No Accessory Muscle Use, Chest Non-Tender Cardiovascular: Regular Rate, Rhythm, No Murmur GI/Abdominal: Soft, Non-Tender Neuro Exam (Abbreviated): Alert, Oriented, CN II-XII Intact, Normal Cognition, No Motor/Sensory Deficits Psychiatric: Anxious, Other (Pressured speech) Course - Vital Signs Last Recorded V/S: Last Vital Signs Temp 98.7 F 06/17/19 04:49 Pulse 74 06/17/19 04:49 Resp 20 06/17/19 04:49 BP 130/76 06/17/19 04:49 Pulse Ox 96 06/17/19 04:49 - Orders/Labs/Meds Labs: Laboratory Tests 06/17/19 06/17/19 06/17/19 Range/Units 05:28 05:28 05:28 WBC 9.7 (4.5-11.0) K/uL RBC 4.35 (3.30-5.50) M/uL Hgb 12.0 (12.0-15.0) g/dL Hct 39.7 (36.0-48.0) % MCV 91 (80-98) fL MCH 28 (27-31) pg MCHC 30 L (32-36) % Plt Count 297 (150-400) K/uL Neut % (Auto) 60 (36-66) % Lymph % (Auto) 15 L (24-44) % [place] % (Auto) 12 H (2-6) % Eos % (Auto) 11 H (2-4) % Baso % (Auto) 1 (0-1) % Sodium 144 (140-148) mmol/L Potassium 4.0 (3.6-5.2) mmol/L Chloride 111 H (100-108) mmol/L Carbon Dioxide 24 (21-32) mmol/L Anion Gap 13.0 (5.0-14.0) mmol/L BUN 22 H (7-18) mg/dL Creatinine 0.8 (0.6-1.0) mg/dL Est Cr Clr Drug Dosing 71.50 mL/min Estimated GFR (MDRD) > 60 (>60) Glucose 145 H (74-106) mg/dL Lactic Acid 1.8 (0.4-2.0) mmol/L Calcium 8.4 L (8.5-10.1) mg/dL Total Bilirubin 0.3 (0.2-1.0) mg/dL AST 26 (15-37) U/L ALT 43 (12-78) U/L Alkaline Phosphatase 115 (46-116) U/L Total Protein 6.9 (6.4-8.2) g/dL Albumin 3.3 L (3.4-5.0) g/dL Globulin 3.6 H (2.3-3.5) g/dL Albumin/Globulin Ratio 0.9 L (1.2-2.2) Urine Color (YELLOW) Urine Appearance (CLEAR) Urine pH (5.0-8.0) Ur Specific [place] (1.008-1.030) Urine Protein (NEGATIVE) mg/dL Urine Glucose (UA) (NEGATIVE) mg/dL Urine Ketones (NEGATIVE) mg/dL Urine Occult Blood (NEGATIVE) Urine Nitrite (NEGATIVE) Urine Bilirubin (NEGATIVE) Urine Urobilinogen (0.2-1.0) EU/dL Ur Leukocyte Esterase (NEGATIVE) Urine RBC (0-5) Urine WBC (0-5) Ur Epithelial Cells Amorphous Sediment Urine Bacteria Urine Mucus Urine Opiates Screen (NEGATIVE) Ur Oxycodone Screen (NEGATIVE) Urine Methadone Screen (NEGATIVE) Ur Propoxyphene Screen (NEGATIVE) Ur Barbiturates Screen (NEGATIVE) Ur Tricyclics Screen (NEGATIVE) Ur Phencyclidine Scrn (NEGATIVE) Ur Amphetamine Screen (NEGATIVE) U Methamphetamines Scrn (NEGATIVE) Urine MDMA Screen (NEGATIVE) U Benzodiazepines Scrn (NEGATIVE) U Cocaine Metab Screen (NEGATIVE) U Marijuana (THC) Screen (NEGATIVE) 06/17/19 06/17/19 Range/Units 05:39 05:39 WBC (4.5-11.0) K/uL RBC (3.30-5.50) M/uL Hgb (12.0-15.0) g/dL Hct (36.0-48.0) % MCV (80-98) fL MCH (27-31) pg MCHC (32-36) % Plt Count (150-400) K/uL Neut % (Auto) (36-66) % Lymph % (Auto) (24-44) % [place] % (Auto) (2-6) % Eos % (Auto) (2-4) % Baso % (Auto) (0-1) % Sodium (140-148) mmol/L Potassium (3.6-5.2) mmol/L Chloride (100-108) mmol/L Carbon Dioxide (21-32) mmol/L Anion Gap (5.0-14.0) mmol/L BUN (7-18) mg/dL Creatinine (0.6-1.0) mg/dL Est Cr Clr Drug Dosing mL/min Estimated GFR (MDRD) (>60) Glucose (74-106) mg/dL Lactic Acid (0.4-2.0) mmol/L Calcium (8.5-10.1) mg/dL Total Bilirubin (0.2-1.0) mg/dL AST (15-37) U/L ALT (12-78) U/L Alkaline Phosphatase (46-116) U/L Total Protein (6.4-8.2) g/dL Albumin (3.4-5.0) g/dL Globulin (2.3-3.5) g/dL Albumin/Globulin Ratio (1.2-2.2) Urine Color Yellow (YELLOW) Urine Appearance Clear (CLEAR) Urine pH 5.5 (5.0-8.0) Ur Specific [place] >= 1.030 (1.008-1.030) Urine Protein Negative (NEGATIVE) mg/dL Urine Glucose (UA) Negative (NEGATIVE) mg/dL Urine Ketones Negative (NEGATIVE) mg/dL Urine Occult Blood Moderate H (NEGATIVE) Urine Nitrite Negative (NEGATIVE) Urine Bilirubin Negative (NEGATIVE) Urine Urobilinogen 0.2 (0.2-1.0) EU/dL Ur Leukocyte Esterase Negative (NEGATIVE) Urine RBC 20-30 H (0-5) Urine WBC 0-5 (0-5) Ur Epithelial Cells Few Amorphous Sediment Not seen Urine Bacteria Few Urine Mucus Few Urine Opiates Screen Negative (NEGATIVE) Ur Oxycodone Screen Negative (NEGATIVE) Urine Methadone Screen Negative (NEGATIVE) Ur Propoxyphene Screen Negative (NEGATIVE) Ur Barbiturates Screen Negative (NEGATIVE) Ur Tricyclics Screen Negative (NEGATIVE) Ur Phencyclidine Scrn Negative (NEGATIVE) Ur Amphetamine Screen Negative (NEGATIVE) U Methamphetamines Scrn Negative (NEGATIVE) Urine MDMA Screen Negative (NEGATIVE) U Benzodiazepines Scrn Negative (NEGATIVE) U Cocaine Metab Screen Negative (NEGATIVE) U Marijuana (THC) Screen Negative (NEGATIVE) Meds: Medications Discontinued Medications Generic Name Dose Route Start Last Admin Trade Name Latoya PRN Reason Stop Dose Admin Diphenhydramine HCl 50 mg 06/17/19 05:32 06/17/19 05:48 Benadryl IVPUSH 06/17/19 05:33 50 mg ONETIME ONE Administration Haloperidol Lactate 5 mg 06/17/19 05:32 06/17/19 05:49 Haldol IVPUSH 06/17/19 05:33 5 mg ONETIME ONE Administration Hydroxyzine HCl 100 mg 06/17/19 05:26 Vistaril IM 06/17/19 05:27 ONETIME ONE Departure - Departure Time of Disposition: 06:30 Disposition: Home, Self-Care 01 Condition: Fair Clinical Impression: Anxiety - Discharge Information Instructions: Generalized Anxiety Disorder, Adult Referrals: PCP,None [Primary Care Provider] - Forms: ED Department Discharge Additional Instructions: Continue with your regular medications please follow-up with your primary care provider in the next 3 to 5 days for further evaluation consider general anxiety medications Sepsis Event Note - Evaluation Sepsis Screening Result: No Definite Risk - Focused Exam Vital Signs: Vital Signs Temp Pulse Resp BP Pulse Ox 06/17/19 04:49 98.7 F 74 20 130/76 96 Date Exam was Performed: 06/17/19 Time Exam was Performed: 06:28 - Assessment/Plan Plan: Assessment Acuity = acute Site and laterality = anxiety Etiology = underlying generalized anxiety disorder Manifestations = none Location of injury = Home Lab values = CBC, CMP urinalysis urine drug screen within normal limits Plan She had good relief combination Haldol and Benadryl however I think she would benefit from long-term anxiety medication possibly SSRI bupropion any of those medications should be pursued and also further clarification of this anaphylactic reaction with Klonopin needs to be investigated from the original records. She has received both Versed and Ativan while at [facility] in May vascular follow-up with her primary care in the next 3 to 5 days for further evaluation This note was dictated using [employer] voice recognition software please call with any questions on syntax or grammar.
== END 2019-06-17 06:49 | disposition home or self-care (01) ==
LOC: JP.ED 04:36
DX: F41.1 Generalized anxiety disorder (principal); I10 Essential (primary) hypertension; F32.9 Major depressive disorder, single episode, unspecified; J45.909 Unspecified asthma, uncomplicated; E66.9 Obesity, unspecified; F17.210 Nicotine dependence, cigarettes, uncomplicated; Z91.048 Other nonmedicinal substance allergy status; Z88.5 Allergy status to narcotic agent; Z88.8 Allergy status to other drugs, medicaments and biological substances; Z79.82 Long term (current) use of aspirin; Z79.899 Other long term (current) drug therapy; Z68.35 Body mass index [BMI] 35.0-35.9, adult
CPT/HCPCS: 36415; 80053; 80305; 81001; 83605; 85025; 96374; 96375; 99284; 99285; J1200; J1630

== ENCOUNTER 2019-06-21 15:16 | Emergency (ER) | payer MEDICARE, MEDICAID ==
[2019-06-21] MEDS ORDERED: Acetaminophen/HYDROcodone 325-5 MG Tab PO ONE (16:39)
--- NOTE | 2019-06-21 16:39 | EDM.PDOC ---
ED HPI GENERAL MEDICAL PROBLEM - General Chief Complaint: Lower Extremity Injury/Pain Stated Complaint: LEFT KNEE PAIN Time Seen by Provider: 06/21/19 16:31 Source of Information: Reports: Patient History Limitations: Reports: No Limitations - History of Present Illness INITIAL COMMENTS - FREE TEXT/NARRATIVE: Patient presents from home for evaluation of increased left knee pain, swelling , redness which is developed over the last couple days since slipping on some ice and accidentally straining/spraining her knee. She had a left knee medial hemiarthroplasty by Dr. Thanh Garrison on 18 May. She had been doing well until recently when she slipped as described previously. She is concerned that the area is infected although she did not strike her knee on anything and the incision has remained intact with no drainage of any kind. No fever or chills although she has been coughing and wheezing a little more. She continues to smoke. She believes she has an appointment with Dr. Garrison in a couple of days but was concerned enough that she was brought in by her daughter arely. Onset: Gradual Duration: Day(s): (3) Location: Reports: Lower Extremity, Left Quality: Reports: Ache, Dull, Other Severity: Severe Improves with: Reports: None Worsens with: Reports: Movement Context: Reports: Trauma Left Knee Pain Score (Numeric/FACES): 8 - Related Data Allergies Allergy/AdvReac Type Severity Reaction Status Date / Time clonazepam [From Klonopin] Allergy Anaphylactic Verified 06/21/19 15:59 Shock adhesive tape AdvReac Itching Verified 06/21/19 16:54 hydromorphone [From Dilaudid] AdvReac Itching Verified 06/21/19 16:54 Home Meds: Home Meds Albuterol [Ventolin HFA] 2 puff INH Q4H PRN 05/22/19 [History] atorvaSTATin [Lipitor] 80 mg PO BEDTIME 06/06/19 [History] Aspirin 325 mg PO DAILY 06/10/19 [History] Diclofenac Potassium [Cataflam] 50 mg PO DAILY 06/17/19 [History] Gabapentin [Neurontin] 400 mg PO TID 06/17/19 [History] hydroCHLOROthiazide [Hydrochlorothiazide] 12.5 mg INH DAILY 06/17/19 [History] Hydrocodone/Acetaminophen [Hydrocodon-Acetaminophn 10-300] 1 tab PO Q6HR [History] lisinopriL [Lisinopril] 10 mg PO DAILY 06/21/19 [History] oxyCODONE HCl/Acetaminophen [Percocet 5-325 mg Tablet] 1 each PO Q6HR 06/21/19 [ History] Past Medical History HEENT History: Reports: Cataract, Impaired Vision, Other (See Below) Cardiovascular History: Reports: Heart Murmur, Hypertension, Other (See Below) Respiratory History: Reports: Asthma, Bronchitis, Recurrent, Other (See Below) 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: pneumonia 12 years ago 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: Musculoskeletal History: Reports: Arthritis, Fracture, RA Neurological History: Reports: Headaches, Chronic, TIA Psychiatric History: Reports: Anxiety, Bipolar, Panic Attack Endocrine/Metabolic History: Reports: Obesity/BMI 30+ Hematologic History: Reports: Anemia - Infectious Disease History Infectious Disease History: Reports: Chicken Pox - Past Surgical History GI Surgical History: Reports: Cholecystectomy, EGD Musculoskeletal Surgical History: Reports: Knee Replacement, Shoulder Surgery Other Musculoskeletal Surgeries/Procedures:: knee surgery May 18 2019 Partial knee Social & Family History - Tobacco Use Smoking Status *Q: Current Every Day Smoker Years of Tobacco use: 39 Packs/Tins Daily: 0.5 - Caffeine Use Caffeine Use: Reports: Coffee, Soda Other Caffeine Use: 3 beverages per day - Recreational Drug Use Recreational Drug Use: No - Living Situation & Occupation Living situation: Reports: with Significant Other, Other (Home health nurse does come and visit her periodically.) Review of Systems - Review of Systems Review Of Systems: See Below Constitutional: Reports: Weakness. Denies: Fever Musculoskeletal: Reports: Leg Pain Skin: Reports: Erythema Neurological: Reports: Difficulty Walking (Due to pain.). Denies: Weakness Psychiatric: Reports: Anxiety ED EXAM, GENERAL - Physical Exam Exam: See Below Exam Limited By: No Limitations General Appearance: Alert, Anxious, Moderate Distress Respiratory/Chest: Lungs Clear Cardiovascular: Regular Rate, Rhythm Extremities: Leg Pain, Limited Range of Motion (There is redness over the left patellar region. There is some edema just proximal to the knee and extending distally in the leg toward the foot and ankle. The incision is intact and does not show any drainage. It is exquisitely tender to the touch.), Redness Psychiatric: Anxious Skin Exam: Warm, Erythema. No: Lymphangitis Course - Vital Signs Last Recorded V/S: Last Vital Signs Temp 36.8 C 06/21/19 18:13 Pulse 76 06/21/19 18:13 Resp 18 06/21/19 18:13 BP 167/78 H 06/21/19 18:13 Pulse Ox 95 06/21/19 18:13 - Orders/Labs/Meds Orders: Active Orders 24 hr Category Date Time Status RT Aerosol Therapy [RC] ASDIRECTED Care 06/21/19 18:17 Active Labs: Laboratory Tests 06/21/19 06/21/19 Range/Units 16:39 16:39 WBC 11.0 (4.5-11.0) K/uL RBC 4.15 (3.30-5.50) M/uL Hgb 11.5 L (12.0-15.0) g/dL Hct 37.9 (36.0-48.0) % MCV 91 (80-98) fL MCH 28 (27-31) pg MCHC 30 L (32-36) % Plt Count 306 (150-400) K/uL Neut % (Auto) 62 (36-66) % Lymph % (Auto) 17 L (24-44) % [place] % (Auto) 11 H (2-6) % Eos % (Auto) 10 H (2-4) % Baso % (Auto) 1 (0-1) % ESR 29 H (0-25) mm/hr Sodium 140 (140-148) mmol/L Potassium 4.6 (3.6-5.2) mmol/L Chloride 107 (100-108) mmol/L Carbon Dioxide 27 (21-32) mmol/L Anion Gap 6.2 (5.0-14.0) mmol/L BUN 21 H (7-18) mg/dL Creatinine 0.8 (0.6-1.0) mg/dL Est Cr Clr Drug Dosing 71.50 mL/min Estimated GFR (MDRD) > 60 (>60) Glucose 113 H (74-106) mg/dL Calcium 8.5 (8.5-10.1) mg/dL C-Reactive Protein 1.77 H (0.0-0.3) mg/dL Meds: Medications Discontinued Medications Generic Name Dose Route Start Last Admin Trade Name Freq PRN Reason Stop Dose Admin Hydrocodone Bitart/Acetaminophen 1 tab 06/21/19 16:39 06/21/19 16:46 [place] 325-5 Mg PO 06/21/19 16:40 1 tab ONETIME ONE Administration Albuterol/Ipratropium 3 ml 06/21/19 18:17 06/21/19 18:29 Duoneb 3.0-0.5 Mg/3 Ml NEB 06/21/19 18:18 3 ml ONETIME ONE Administration - Re-Assessments/Exams Free Text/Narrative Re-Assessment/Exam: 06/21/19 19:53 Patient was given a single dose of hydrocodone 5/325 mg. X-ray of the knee ordered and reviewed by me shows no acute bony injury, only soft tissue effusion. Labs show a minimal elevation of her leukocyte count as well as sedimentation rate and CRP. I was able to contact Dr. Garrison by telephone and reviewed the case with him. He is not believe that the knee is infected given the mechanism of injury and my description of her appearance. He recommends continuing using the recently prescribed knee immobilizer from [facility] [place] as well as icing the knee and elevating it. Although the patient states she has an appointment with him in 2 days, he does not recall that. She should call his office tomorrow and arrange a recheck appointment if one is not currently listed on their schedule. Multiple questions were answered from the patient and her daughter but she was able to ambulate out of the department using her walker. 06/21/19 19:53 Departure - Departure Time of Disposition: 19:12 Disposition: Home, Self-Care 01 Condition: Good Clinical Impression: Left knee sprain Qualifiers: Encounter type: initial encounter Involved ligament of knee: unspecified ligament Qualified Code(s): S83.92XA - Sprain of unspecified site of left knee, initial encounter - Discharge Information *PRESCRIPTION DRUG MONITORING PROGRAM REVIEWED*: Not Applicable *COPY OF PRESCRIPTION DRUG MONITORING REPORT IN PATIENT JAKY: Not Applicable Instructions: Knee Sprain, Adult, [id number] Referrals: Soheila Saleem DO [Primary Care Provider] - Forms: ED Department Discharge Additional Instructions: Use knee immobilizer to prevent unnecessary movement. Ice the knee 20 minutes off and on as discussed. Elevate leg as much as possible. Contact Dr. Garrison's office tomorrow, Saturday, to arrange a recheck office visit. Sepsis Event Note - Evaluation Sepsis Screening Result: No Definite Risk - Focused Exam Vital Signs: Vital Signs Temp Pulse Resp BP Pulse Ox 06/21/19 18:13 36.8 C 76 18 167/78 H 95 06/21/19 16:04 36.5 C 81 20 192/62 H 95 06/21/19 15:57 36.5 C 81 20 192/62 H 95 Date Exam was Performed: 06/21/19 Time Exam was Performed: 19:42 - My Orders Last 24 Hours: My Active Orders 06/21/19 18:17 RT Aerosol Therapy [RC] ASDIRECTED - Assessment/Plan Last 24 Hours: My Active Orders 06/21/19 18:17 RT Aerosol Therapy [RC] ASDIRECTED
[2019-06-21 18:14] VITALS: BP 167/78; PULSE 76
[2019-06-21] MEDS ORDERED: Albuterol/Ipratropium 3.0-0.5 MG/3 ML Neb Soln NEB ONE (18:17)
--- NOTE | 2019-06-21 18:41 | CRLCR ---
Indication: Pain and swelling Technique: Three views of the left knee Comparison: None available Findings: Bones: Status post medial compartment hemiarthroplasty. Satisfactory alignment of the hardware. No acute fracture or dislocation. Mild ill-defined osseous demineralization adjacent to the medial femoral hardware. Lateral patellar tilt and mild lateral patellar subluxation. Joint spaces: Narrowed appearance of the medial compartment. A [id number] suprapatellar effusion. Possible edema in Hoffa`s fat pad. Soft tissues: Anterior soft tissue edema. Impression: No acute fracture or dislocation. A [id number] joint effusion and possible edema in Hoffa`s fat pad. Slight demineralization adjacent to the medial femoral hardware. Correlate clinically to exclude infection and septic arthritis, and if indicated, correlate with joint aspiration. Lateral patellar tilt and subluxation. Correlate for history of transient patellar dislocation. Dictated by Steve Birmingham MD @ 06/21/2019 6:40:29 PM Dictated by: Steve Birmingham MD @ 06/21/2019 18:40:38 (Electronically Signed)
== END 2019-06-21 19:56 | disposition home or self-care (01) ==
LOC: JP.ED 15:16
DX: S83.92XA Sprain of unspecified site of left knee, initial encounter (principal); R05 Cough; R06.2 Wheezing; F41.9 Anxiety disorder, unspecified; E66.9 Obesity, unspecified; J45.909 Unspecified asthma, uncomplicated; Z91.09 Other allergy status, other than to drugs and biological substances; Z88.6 Allergy status to analgesic agent; Z90.49 Acquired absence of other specified parts of digestive tract; W00.0XXA Fall on same level due to ice and snow, initial encounter
CPT/HCPCS: 36415; 73562; 80048; 85025; 85651; 86140; 94640; 99283; 99285; A9270; J7620-GY

== ENCOUNTER 2019-09-10 22:41 | Emergency (ER) | payer MEDICARE, MEDICAID ==
[2019-09-10 23:01] VITALS: BP 116/59; PULSE 86
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
== END 2019-09-10 23:45 | disposition home or self-care (01) ==
LOC: JP.ED 22:41
DX: T28.0XXA Burn of mouth and pharynx, initial encounter (principal); K04.7 Periapical abscess without sinus; K03.81 Cracked tooth; K02.9 Dental caries, unspecified; J45.909 Unspecified asthma, uncomplicated; I10 Essential (primary) hypertension; E66.9 Obesity, unspecified; F17.210 Nicotine dependence, cigarettes, uncomplicated; Z88.8 Allergy status to other drugs, medicaments and biological substances; Z88.5 Allergy status to narcotic agent; Z91.048 Other nonmedicinal substance allergy status; Z79.82 Long term (current) use of aspirin; Z79.899 Other long term (current) drug therapy; Z68.41 Body mass index [BMI] 40.0-44.9, adult; Z86.73 Personal history of transient ischemic attack (TIA), and cerebral infarction without residual deficits; X19.XXXA Contact with other heat and hot substances, initial encounter
CPT/HCPCS: 99283

== ENCOUNTER 2021-04-17 22:45 | Emergency (ER) | payer MEDICAID, MEDICARE ==
[2021-04-17 22:58] VITALS: BP 191/97; PULSE 97
== END 2021-04-17 23:05 | disposition left against medical advice (07) ==
LOC: JP.ED 22:45
DX: Z53.21 Procedure and treatment not carried out due to patient leaving prior to being seen by health care provider (principal)

== ENCOUNTER 2023-01-01 21:13 | Emergency (ER) | payer MEDICARE, MEDICAID ==
[2023-01-01] MEDS ORDERED: Cyclobenzaprine 10 MG Tab PO ONE (21:18)
[2023-01-01] MEDS ORDERED: LORazepam 2 MG/ML SDV IVPUSH ONE (21:19)
[2023-01-01 22:18] VITALS: BP 128/58; PULSE 83
[2023-01-01] MEDS ORDERED: oxyCODONE 5 MG Tab PO ONE (22:23)
[2023-01-01 23:21] LABS: CALCIUM 8.7 mg/dL (8.5-10.1); CREATININE 0.9 mg/dL (0.6-1.0); EST CRCL DRUG DOSING (CG) 58.12 mL/min; MAGNESIUM 1.9 mg/dL (1.8-2.4); POTASSIUM,K 4.4 mmol/L (3.6-5.2)
[2023-01-01 23:26] LABS: ANION GAP 12.4 mmol/L (5.0-14.0)
[2023-01-01 23:31] LABS: APPEARANCE,URINE SLIGHTLY CLOUDY (CLEAR); BILIRUBIN,URINE NEGATIVE (NEGATIVE); COLOR,URINE YELLOW (YELLOW); GLUCOSE,URINE NEGATIVE (NEGATIVE); KETONES,URINE NEGATIVE (NEGATIVE); LEUKOCYTE ESTERASE,URINE NEGATIVE (NEGATIVE); NITRITE,URINE NEGATIVE (NEGATIVE); OCCULT BLOOD,URINE TRACE-INTACT (NEGATIVE); PH,URINE 5.5 (5.0-8.0); PROTEIN,URINE TRACE mg/dL (NEGATIVE); UROBILINOGEN,URINE 0.2 EU/dL (0.2-1.0)
[2023-01-01 23:37] LABS: AMORPHOUS SEDIMENT,URINE NOT SEEN; BACTERIA,URINE FEW; EPITHELIAL CELLS,URINE FEW; MUCUS,URINE FEW
[2023-01-01 23:38] LABS: RBC,URINE 0-5 (0-5); WBC,URINE 0-5 (0-5)
== END 2023-01-02 00:16 | disposition home or self-care (01) ==
LOC: EEVIPCON 21:13 → JP.ED 21:13
DX: M62.830 Muscle spasm of back (principal); I10 Essential (primary) hypertension; F17.210 Nicotine dependence, cigarettes, uncomplicated; E66.9 Obesity, unspecified; Z68.39 Body mass index [BMI] 39.0-39.9, adult; Z88.5 Allergy status to narcotic agent; Z88.8 Allergy status to other drugs, medicaments and biological substances; Z91.09 Other allergy status, other than to drugs and biological substances; Z86.73 Personal history of transient ischemic attack (TIA), and cerebral infarction without residual deficits
CPT/HCPCS: 36415; 80048; 81001; 83735; 99284; A9270

== ENCOUNTER 2023-03-09 15:16 | Emergency (ER) | payer MEDICARE, MEDICAID | END 2023-03-09 15:40 | disposition left against medical advice (07) | LOC: JP.ED 15:16 | DX: Z53.21 Procedure and treatment not carried out due to patient leaving prior to being seen by health care provider (principal) ==

== ENCOUNTER 2023-11-13 21:14 | Emergency (ER) | payer MEDICARE, MEDICAID ==
[2023-11-13 22:03] LABS: BASOPHILS ABSOLUTE AUTO 0.08 K/uL (0.00-0.10); BASOPHILS PERCENT AUTO 0.6 % (0.1-1.3); EOSINOPHILS ABSOLUTE AUTO 0.32 K/uL (0.00-0.40); EOSINOPHILS PERCENT AUTO 2.2 % (0.0-5.4); HEMATOCRIT 41.7 % (34.3-46.0); HEMOGLOBIN 13.1 g/dL (11.2-15.5); IMMATURE GRAN ABSOLUTE AUTO 0.18 K/uL (0.00-0.23); IMMATURE GRAN PERCENT AUTO 1.3 % (0.0-0.7); LYMPHOCYTES ABSOLUTE AUTO 2.03 K/uL (0.8-3.3); LYMPHOCYTES PERCENT AUTO 14.2 % (11.4-47.7); MEAN CORPUSCULAR HEMOGLOBIN 26.2 pg (31.6-35.5); MEAN CORPUSCULAR HGB CONC 31.4 g/dL (31.6-35.5); MEAN CORPUSCULAR VOLUME 83.4 fL (81.4-99.0); MONOCYTES ABSOLUTE AUTO 1.25 K/uL (0.20-0.90); MONOCYTES PERCENT AUTO 8.7 % (3.3-12.6); NEUTROPHILS ABSOLUTE AUTO 10.44 K/uL (1.0-7.6); PLATELET COUNT,PLT 331 K/uL (130-375); WHITE BLOOD CELL COUNT,WBC 14.3 K/uL (3.2-11.0)
[2023-11-13] MEDS: HYDROmorphone 1 MG/ML Syringe IVPUSH ONE (22:18)
[2023-11-13 22:23] LABS: A/G RATIO 0.8 (1.2-2.2); ALANINE AMINOTRANSFERASE,ALT 143 U/L (12-78); ALBUMIN 3.6 g/dL (3.4-5.0); ALKALINE PHOSPHATASE 126 U/L (46-116); ANION GAP 7.7 mmol/L (5.0-14.0); ASPARTATE AMNIOTRANSFERASE,AST 91 U/L (15-37); BILIRUBIN TOTAL 0.5 mg/dL (0.2-1.0); BLOOD UREA NITROGEN,BUN 16 mg/dL (7-18); CALCIUM 8.8 mg/dL (8.5-10.1); CARBON DIOXIDE,CO2 28 mmol/L (21-32); CHLORIDE,CL 104 mmol/L (100-108); EST CRCL DRUG DOSING (CG) 52.31 mL/min; ESTIMATED GFR 65 mL/min (>60); GLUCOSE RANDOM 148 mg/dL (74-106); POTASSIUM,K 4.7 mmol/L (3.6-5.2); PROTEIN TOTAL,TP 8.4 g/dL (6.4-8.2); SODIUM,NA 140 mmol/L (140-148)
[2023-11-13] MEDS: Sodium Chloride 0.9% 100 ML IV SCH (22:57)
[2023-11-13] MEDS: Iopamidol 612 MG/ML 100 ML Bottle IV SCH (22:57)
[2023-11-13] MEDS: Ampicillin/Sulbactam Na 3 GM in Sodium Chloride 0.9% 100 ML IV ONE (23:15)
[2023-11-14] MEDS: HYDROmorphone 0.5 MG/0.5 ML Syringe IVPUSH ONE (00:22)
[2023-11-14] MEDS: Amoxicillin/Clavulanate K 875-125 MG Tab PO ONE (00:28)
[2023-11-14 00:40] VITALS: BP 160/86; PULSE 86
[2023-11-14] MEDS: Sodium Chloride 0.9% 10 ML Syringe FLUSH ONE (02:17)
== END 2023-11-14 00:38 | disposition home or self-care (01) ==
LOC: JP.ED 21:14
DX: K57.32 Diverticulitis of large intestine without perforation or abscess without bleeding (principal); I11.0 Hypertensive heart disease with heart failure; I50.9 Heart failure, unspecified; J44.9 Chronic obstructive pulmonary disease, unspecified; E66.9 Obesity, unspecified; Z87.891 Personal history of nicotine dependence; Z79.899 Other long term (current) drug therapy; Z79.84 Long term (current) use of oral hypoglycemic drugs; Z91.048 Other nonmedicinal substance allergy status; Z88.6 Allergy status to analgesic agent; Z88.8 Allergy status to other drugs, medicaments and biological substances; Z68.43 Body mass index [BMI] 50.0-59.9, adult
CPT/HCPCS: 36415; 74177; 80053; 83605; 83690; 84145; 85025; 96365; 96375; 96376; 99284; 99285; A9270; J0295; J1170; J3490; Q9967